=== PATIENT | male | born 1975 | race Caucasian/White ===

== ENCOUNTER → 2019-05-09 19:35 | Outpatient (CLI) | payer OTHER, SELFPAY ==
--- NOTE | 2019-05-09 19:41 | DI.MRI.S_ITS ---
PROCEDURE: MR KNEE RT WO CON INDICATIONS: RIGHT KNEE PAIN TECHNIQUE: Noncontrast sagittal PD fast spin echo and T2 fast spin echo with fat saturation, sagittal 3-D FLASH with fat saturation; coronal T1 spin echo and PD fast spin echo with fat saturation, and axial PD fast spin echo with fat saturation through the knee. COMPARISON: None. FINDINGS: Image quality: Excellent. Menisci: Subtle signal change on image 7 series 7 raise the possibility of undersurface or radial tear involving the junction of the anterior horn and body although technically does not meet strict MR criteria and not seen on orthogonal pulse sequences. Medial meniscal tear involving the undersurface of the body on image 19 series 10. Cruciate ligaments: The anterior and posterior cruciate ligaments appear intact. Medial structures: The medial collateral ligament appears intact. The posterior oblique ligament, semimembranosus tendon insertions, oblique popliteal ligament, and meniscocapsular junction appear intact. Visualized portions of the pes anserinus tendons appear normal. No abnormal bursal fluid. Lateral structures: The lateral collateral ligament demonstrates thickening and intrasubstance signal change in keeping with low grade sprain, statistically chronic, although technically age indeterminate. The biceps femoris tendon appears intact. Popliteus tendon grossly unremarkable. Iliotibial band appears intact. Anterior structures: Quadriceps tendon intact. There is mild patellar tendinopathy. Medial and patellofemoral ligaments intact. Minimal fluid in the deep infrapatellar bursa. Prepatellar and superficial infrapatellar subcutaneous edema/fluid. Bones and cartilage: No focal marrow contusion or discrete low signal fracture line. Within the medial compartment, no articular cartilage defect identified Within the lateral compartment, mild surface fraying and intrasubstance signal change of the central weightbearing femoral and tibial articular cartilage. Within the patellofemoral compartment, surface fraying involving the cartilage overlying the median patellar ridge. Joint space: No pathologic joint effusion. No formed Chan's cyst. No specific evidence of intra-articular loose body. IMPRESSION: Medial meniscal tear involving the undersurface of the body. Possible subtle/radial tear of the junction of the anterior horn and body of the lateral meniscus although does not meet strict MR criteria. Mild degenerative joint disease as above. Mild patellar tendinopathy. Dictated by: Ventura Hillman M.D. on 05/10/2019 at 9:08 Approved by: Ventura Hillman M.D. on 05/10/2019 at 9:20
== END ==
PROVIDERS: Visit Provider Family Medicine
DX: M25.561 Pain in right knee (principal); S83.241A Other tear of medial meniscus, current injury, right knee, initial encounter; M17.11 Unilateral primary osteoarthritis, right knee; M67.961 Unspecified disorder of synovium and tendon, right lower leg
CPT/HCPCS: 73721

== ENCOUNTER 2019-09-08 14:45 | Emergency (ER) | payer OTHER, SELFPAY ==
[2019-09-08 14:51] VITALS: BP 165/93; PULSE 63; RESP 14; TEMP 36.4; O2SAT 96; BMI 32.8
[2019-09-08 15:15] LABS: Bacteria Urine None Seen; WBC Urine None Seen (0-5/HPF)
[2019-09-08 15:29] LABS: Amorphous Sediment Urine 1+; Culture Indicated Urine Cult Not Indicated; Mucus Urine 2+ (Negative); RBC Urine 0-1/HPF (0-5/HPF)
--- NOTE | 2019-09-08 16:02 | DI.CT.S_ITS ---
PROCEDURE: CT KIDNEY URETER BLADDER (KUB) INDICATIONS: L flank pain, severe hematuria TECHNIQUE: Noncontrast 5 mm thick sections acquired from the diaphragms to the symphysis. 5 mm thick coronal and sagittal reformats were then performed. For radiation dose reduction, the following was used: automated exposure control, adjustment of mA and/or kV according to patient size. COMPARISON: None. FINDINGS: Image quality: Excellent. Lung bases: Lung bases are clear. Heart size is normal. There is a small hiatal hernia. Urinary system: There is a 3 mm stone within the bladder lumen, near the left ureterovesical junction, likely a recently passed stone. There is mild left hydronephrosis and left hydroureter with perinephric stranding and perirectal stranding. Both kidneys are normal in size. The right ureter is non-dilated throughout their expected courses. Bladder is semicontracted. Other solid organs: Liver is normal in size. Gallbladder is normal. Pancreas is normal in contours. Spleen is normal in size. No adrenal nodules. Peritoneum and bowel: Unenhanced bowel loops demonstrate normal wall thickness and caliber. There is a moderate amount of stool in colon. No free fluid or air. Nodes and vessels: No retroperitoneal or mesenteric adenopathy by size criteria. Aorta and inferior vena cava are normal in caliber. Abdominal wall: There is a small umbilical hernia. Pelvis: No free pelvic fluid. No inguinal adenopathy. Small fat containing inguinal hernias are noted bilaterally. Bones: No suspicious bony lesions. No vertebral body compression fractures. IMPRESSION: 1. A 3 mm recently passed stone within the bladder lumen. There is mild left hydronephrosis and hydroureter with perinephric stranding and periureteral stranding. The result was discussed with Dr. Mcnair. Dictated by: Chris Gleason M.D. on 09/08/2019 at 16:48 Approved by: Chris Gleason M.D. on 09/08/2019 at 17:03
[2019-09-08 16:05] LABS: Add Manual Diff / Slide Review NO; Basophils Absolute Auto 100 /uL (0-100); Basophils Percent Auto 0.4 % (0-2); Eosinophils Absolute Auto 100 /uL (0-450); Eosinophils Percent Auto 0.5 % (2-4); Hematocrit 45.9 % (41-53); Hemoglobin 15.7 g/dL (13.5-17.5); Lymphocytes Absolute Auto 2100 /uL (1100-4500); Lymphocytes Percent Auto 13.5 % (25-40); Mean Corpuscular HGB Conc 34.3 % (30-36); Mean Corpuscular Hemoglobin 29.7 PG (26-34); Mean Corpuscular Volume 86.7 fL (80-100); Monocytes Absolute Auto 900 /uL (0-900); Neutrophils Absolute Auto 12100 /uL (1500-7000); Neutrophils Percent Auto 79.6 % (50-75); Platelet Count 219 X10^3/uL (150-400); Red Blood Cell Count 5.29 X10^6/uL (4.5-5.9); Red Cell Distribution Width 13.2 % (11.6-14.8); White Blood Cell Count 15.3 X10^3/uL (4.5-11.0)
[2019-09-08] MEDS: SODIUM CHLORIDE 0.9% 1,000 ML 1000 ML IV (16:10)
[2019-09-08] MEDS: KETOROLAC 60 MG/2 ML VIAL 15 MG IV (16:11)
[2019-09-08 16:13] LABS: Prothrombin Time 10.9 SECONDS (10.1-12.7)
[2019-09-08 16:15] LABS: PTT Partial Thromboplastin Tim 41 SECONDS (26.4-36.2)
[2019-09-08 16:17] LABS: Alanine Aminotransferase 62 IU/L (<50); Albumin 4.7 g/dL (3.5-5.0); Albumin Globulin Ratio 1.6 (1.0-2.8); Alkaline Phosphatase 80 U/L (38-126); Aspartate Aminotransferase 167 IU/L (17-59); BUN Creatinine Ratio 14.5 (6-22); Bilirubin Total 0.5 mg/dL (0.2-1.3); Blood Urea Nitrogen 16 mg/dL (9-20); Calcium 9.4 mg/dL (8.4-10.2); Carbon Dioxide 28 mmol/L (22-32); Chloride 102 mmol/L (98-107); Estimated Glomerular Filt Rate > 60.0 mL/min (>60); Globulin 2.9 g/dL (1.7-4.1); Glucose 110 mg/dL (70-100); HEMOLYSIS < 15 (0-50); Lipase 62 U/L (23-300); Potassium 4.3 mmol/L (3.4-5.1); Sodium 140 mmol/L (137-145); Total Protein 7.6 g/dL (6.3-8.2)
[2019-09-08 16:34] VITALS: BP 154/94; PULSE 84; RESP 17; O2SAT 100
--- NOTE | 2019-09-08 16:47 | ED_ITS ---
HPI - Back Pain/Injury General Chief Complaint: Back Pain/Injury Stated Complaint: lower left back pain Time Seen by Provider: 09/08/19 15:01 Source: patient Mode of arrival: Ambulatory Limitations: no limitations History of Present Illness HPI Narrative: 43-year-old male nonsmoker a benign medical history presents with his in the chief complaint of sudden onset left flank pain this morning. There is no provocation or palliation. There episodes of intense pain followed by persistence of an achy pain. He denies any fever but has had some chills. He denies any dysuria, frequency or urgency. He has had no change in bowel habits. He denies any history of the same. MD Complaint: back pain Onset (ago): hour(s) Duration: intermittent Similar Symptoms Previously: No Location: left flank Severity: mild Quality: sharp Radiation: none Relieving factors: none Exacerbating factors: none Associated symptoms: denies other symptoms Related Data Home Medications Medication Instructions Recorded Confirmed pantoprazole 40 mg PO DAILY 09/08/19 09/08/19 phentermine 37.5 mg PO QAM 09/08/19 09/08/19 Previous Rx's Medication Instructions Recorded hydrocodone-acetaminophen 1 tab PO Q4-6H PRN #10 tab 09/08/19 ketorolac 10 mg PO Q6H PRN #14 tab 09/08/19 ondansetron 4 mg PO TID-QID PRN #10 tab 09/08/19 tamsulosin [Flomax] 0.4 mg PO DAILY #10 cap 09/08/19 Allergies Allergy/AdvReac Type Severity Reaction Status Date / Time No Known Drug Allergies Allergy Verified 09/08/19 14:54 Review of Systems Constitutional Constitutional: Denies chills, Denies fatigue, Denies fever(s), Denies frequent falls, Denies lethargy and Denies weakness Eyes Eyes: Denies change in vision, Denies eye discharge, Denies irritation and Denies loss of vision ENT Ears, Nose, Mouth, and Throat: Denies change in voice, Denies dizziness, Denies neck pain, Denies sore throat and Denies throat swelling Cardiovascular Cardiovascular: Denies chest pain, Denies irregular heart rhythm, Denies lightheadedness, Denies palpitations, Denies dyspnea, Denies dyspnea on exertion and Denies orthopnea Respiratory Respiratory: Denies cough, Denies dyspnea, Denies dyspnea on exertion and Denies wheezing Gastrointestinal Gastrointestinal: Denies abdominal pain, Denies change in bowel habits, Denies diarrhea, Denies nausea and Denies vomiting Genitourinary Genitourinary: Denies hematuria, Reports flank pain, Denies urinary incontinence and Denies urinary urgency Musculoskeletal Musculoskeletal: Denies back pain, Denies muscle weakness, Denies neck pain, Denies numbness and Denies tingling Integumentary/Breasts Skin/Breast: Denies pruritus, Denies erythema, Denies rash and Denies wounds Neurologic Neurologic: Denies behavioral changes, Denies confusion, Denies dizziness, Denies frequent falls, Denies loss of vision, Denies numbness, Denies tingling and Denies weakness Psychiatric Psychiatric: Denies anxiety, Denies behavioral changes, Denies confusion, Denies depression, Denies homicidal ideation and Denies suicidal ideation Endocrine Endocrine: Denies fatigue, Denies flushing and Denies palpitations Hematologic/Lymphatic Hematologic/Lymphatic: Denies easy bruising Allergic/Immunologic Allergic/Immunologic: Denies urticaria, Denies throat swelling and Denies wheezing Patient History Social History Smoking Status: Never smoker Smoking Status: Never smoker Substance Use Type: does not use Exam Narrative Exam Narrative: GENERAL: [43] year old patient appears stated age. Well- nourished, well-developed patient, in obvious distress, rocking back and forth, rubbing his left flank HEAD: Atraumatic. Normocephalic. EYES: Pupils equal round and reactive. Extraocular motions intact. No scleral icterus. No injection or drainage. ENT: Nose without bleeding, purulent drainage. Throat without erythema, tonsillar hypertrophy or exudate. Airway patent. NECK: Trachea midline. Non tender CARDIOVASCULAR: Regular rate and rhythm without murmurs, gallops, or rubs. RESPIRATORY: Clear to auscultation. Breath sounds equal bilaterally. No wheezes, rales, or rhonchi. GASTROINTESTINAL: Abdomen soft, non-tender, nondistended. EXTREMITIES: No edema or joint tenderness. BACK: Nontender without deformity or crepitance. No flank tenderness. NEURO: AOx3. SKIN: No rash or erythema of visible areas Initial Vital Signs Initial Vital Signs: Vital Signs Temperature 97.6 F 09/08/19 14:51 Pulse Rate 63 09/08/19 14:51 Respiratory Rate 14 09/08/19 14:51 Blood Pressure 165/93 H 09/08/19 14:51 Pulse Oximetry 96 09/08/19 14:51 Course Orders Ordered: ED Orders 09/08/19 15:14 Urine Microscopic Stat 09/08/19 15:59 Complete Blood Count AUTO DIFF Stat Comprehensive Metabolic Panel Stat Lipase Stat Partial Thromboplastin Time Stat Prothrombin Time INR Stat 09/08/19 16:02 CT kidney ureter bladder (KUB) Stat Discontinued Medications Sodium Chloride (Normal Saline 0.9%) 1,000 mls @ 1,000 mls/hr IV BOLUS ONE Stop: 09/08/19 17:01 Last Infusion: 09/08/19 17:36 Dose: 0 mls/hr Documented by: Admin: 09/08/19 16:10 Dose: 1,000 mls/hr Documented by: KIRSTEN Lidocaine HCl 7.1 ml/ Sodium (Chloride) 57.1 mls @ 342.6 mls/hr IV NOW ONE Stop: 09/08/19 17:02 Last Admin: 09/08/19 17:36 Dose: Not Given Documented by: KIRSTEN Ketorolac Tromethamine (Toradol) 15 mg IV NOW ONE Stop: 09/08/19 16:03 Last Admin: 09/08/19 16:11 Dose: 15 mg Documented by: KIRSTEN Vital Signs Vital signs: Vital Signs - 8 hr 09/08/19 14:51 09/08/19 16:34 09/08/19 18:04 Temperature 97.6 F Pulse Rate 63 84 65 Respiratory Rate 14 17 16 Blood Pressure 165/93 H Blood Pressure [Right Arm] 154/94 H 149/96 H Pulse Oximetry 96 100 99 MDM - Back Pain/Injury Lab Data Result diagrams: 09/08/19 15:59 09/08/19 15:59 Labs: Lab Results 09/08/19 09/08/19 09/08/19 Range/Units 15:14 15:59 15:59 WBC 15.3 H (4.5-11.0) X10^3/uL RBC 5.29 (4.5-5.9) X10^6/uL Hgb 15.7 (13.5-17.5) g/dL Hct 45.9 (41-53) % MCV 86.7 (80-100) fL MCH 29.7 (26-34) PG MCHC 34.3 (30-36) % RDW 13.2 (11.6-14.8) % Plt Count 219 (150-400) X10^3/uL Neut % (Auto) 79.6 H (50-75) % Lymph % (Auto) 13.5 L (25-40) % Platte % (Auto) 6.0 (3-14) % Eos % (Auto) 0.5 L (2-4) % Baso % (Auto) 0.4 (0-2) % Neut # (Auto) 76423 H (1472-0909) /uL Lymph # (Auto) 2100 (1819-9264) /uL Platte # (Auto) 900 (0-900) /uL Eos # (Auto) 100 (0-450) /uL Baso # (Auto) 100 (0-100) /uL PT 10.9 (10.1-12.7) SECONDS INR 1.0 (0.9-1.3) APTT 41 H (26.4-36.2) SECONDS Sodium (137-145) mmol/L Potassium (3.4-5.1) mmol/L Chloride (98-107) mmol/L Carbon Dioxide (22-32) mmol/L BUN (9-20) mg/dL Creatinine (0.66-1.25) mg/dL Estimated GFR (>60) mL/min BUN/Creatinine Ratio (6-22) Glucose (70-100) mg/dL Calcium (8.4-10.2) mg/dL Total Bilirubin (0.2-1.3) mg/dL AST (17-59) IU/L ALT (<50) IU/L Alkaline Phosphatase (38-126) U/L Total Protein (6.3-8.2) g/dL Albumin (3.5-5.0) g/dL Globulin (1.7-4.1) g/dL Albumin/Globulin Ratio (1.0-2.8) Lipase (23-300) U/L Urine RBC 0-1/hpf (0-5/HPF) Urine WBC None seen (0-5/HPF) Amorphous Sediment 1+ Urine Bacteria None seen (None) Urine Mucus 2+ H (Negative) Ur Culture Indicated? Cult not indicated 09/08/19 Range/Units 15:59 WBC (4.5-11.0) X10^3/uL RBC (4.5-5.9) X10^6/uL Hgb (13.5-17.5) g/dL Hct (41-53) % MCV (80-100) fL MCH (26-34) PG MCHC (30-36) % RDW (11.6-14.8) % Plt Count (150-400) X10^3/uL Neut % (Auto) (50-75) % Lymph % (Auto) (25-40) % Platte % (Auto) (3-14) % Eos % (Auto) (2-4) % Baso % (Auto) (0-2) % Neut # (Auto) (5542-1399) /uL Lymph # (Auto) (7349-1223) /uL Platte # (Auto) (0-900) /uL Eos # (Auto) (0-450) /uL Baso # (Auto) (0-100) /uL PT (10.1-12.7) SECONDS INR (0.9-1.3) APTT (26.4-36.2) SECONDS Sodium 140 (137-145) mmol/L Potassium 4.3 (3.4-5.1) mmol/L Chloride 102 (98-107) mmol/L Carbon Dioxide 28 (22-32) mmol/L BUN 16 (9-20) mg/dL Creatinine 1.10 (0.66-1.25) mg/dL Estimated GFR > 60.0 (>60) mL/min BUN/Creatinine Ratio 14.5 (6-22) Glucose 110 H (70-100) mg/dL Calcium 9.4 (8.4-10.2) mg/dL Total Bilirubin 0.5 (0.2-1.3) mg/dL AST 167 H (17-59) IU/L ALT 62 H (<50) IU/L Alkaline Phosphatase 80 (38-126) U/L Total Protein 7.6 (6.3-8.2) g/dL Albumin 4.7 (3.5-5.0) g/dL Globulin 2.9 (1.7-4.1) g/dL Albumin/Globulin Ratio 1.6 (1.0-2.8) Lipase 62 (23-300) U/L Urine RBC (0-5/HPF) Urine WBC (0-5/HPF) Amorphous Sediment Urine Bacteria (None) Urine Mucus (Negative) Ur Culture Indicated? Urine Dip Bedside Urine Glucose Negative Bedside Urine Bilirubin + 1 Bedside Urine Ketone +/- 5 Urine Specific Dandridge 1.030 Bedside Urine Occult Blood +/- Bedside Urine pH 6.0 Bedside Urine Protein +/- 15 Bedside Urine Urobilinogen +/- 1mg Bedside Urine Nitrite - Negative Bedside Urine Leukocytes - Negative Esterase Imaging Data CT scan - abdomen/pelvis: Radiologist's Impression: [address] [address] [address] Scan Report Signed Patient: Grayson Barrow GMR#: [id number] : 1975Acct:[id number] Age/Sex: 43 / MDate of Service: 09/08/19 Loc: ED Accession Number: [id number] Procedure: CT kidney ureter bladder (KUB) Ordering Provider: Mario Mcnair D.O. PROCEDURE: CT KIDNEY URETER BLADDER (KUB) INDICATIONS: L flank pain, severe hematuria TECHNIQUE: Noncontrast 5 mm thick sections acquired from the diaphragms to the symphysis. 5 mm thick coronal and sagittal reformats were then performed. For radiation dose reduction, the following was used: automated exposure control, adjustment of mA and/or kV according to patient size. COMPARISON: None. FINDINGS: Image quality: Excellent. Lung bases: Lung bases are clear. Heart size is normal. There is a small hiatal hernia. Urinary system: There is a 3 mm stone within the bladder lumen, near the left ureterovesical junction, likely a recently passed stone. There is mild left hydronephrosis and left hydroureter with perinephric stranding and perirectal stranding. Both kidneys are normal in size. The right ureter is non-dilated throughout their expected courses. Bladder is semicontracted. Other solid organs: Liver is normal in size. Gallbladder is normal. Pancreas is normal in contours. Spleen is normal in size. No adrenal nodules. Peritoneum and bowel: Unenhanced bowel loops demonstrate normal wall thickness and caliber. There is a moderate amount of stool in colon. No free fluid or air. Nodes and vessels: No retroperitoneal or mesenteric adenopathy by size criteria. Aorta and inferior vena cava are normal in caliber. Abdominal wall: There is a small umbilical hernia. Pelvis: No free pelvic fluid. No inguinal adenopathy. Small fat containing inguinal hernias are noted bilaterally. Bones: No suspicious bony lesions. No vertebral body compression fractures. IMPRESSION: 1. A 3 mm recently passed stone within the bladder lumen. There is mild left hydronephrosis and hydroureter with perinephric stranding and periureteral stranding. The result was discussed with Dr. Mcnair. Dictated by: Chris Gleason M.D. on 09/08/2019 at 16:48 Approved by: Chris Gleason M.D. on 09/08/2019 at 17:03 Discharge Plan Departure Patient Disposition: Home Clinical Impression: Kidney stone Discharge Date/Time: 09/08/19 18:06 Activity Restrictions/Additional Instructions: *You have been diagnosed with [left-sided kidney stone, likely already passed, in your bladder] *What to do: *Take medications as directed *Follow up with your primary care provider in 2-3 days, call for an appointment. Let them know you were seen in the Emergency Department and that we ask that you be seen in follow up *Return to ER if you should have any new, worsening or concerning symptoms Prescriptions: New hydrocodone-acetaminophen 5-325 mg tablet 1 tab PO Q4-6H PRN (Reason: pain) Qty: 10 RF: 0 ketorolac 10 mg tablet 10 mg PO Q6H PRN (Reason: pain) Qty: 14 RF: 0 ondansetron 4 mg tablet,disintegrating 4 mg PO TID-QID PRN (Reason: nausea and vomiting) Qty: 10 RF: 0 tamsulosin [Flomax] 0.4 mg capsule 0.4 mg PO DAILY Qty: 10 RF: 0 No Action phentermine 37.5 mg tablet 37.5 mg PO QAM RF: 0 pantoprazole 40 mg tablet,delayed release (DR/EC) 40 mg PO DAILY RF: 0
[2019-09-08 18:04] VITALS: BP 149/96; PULSE 65; RESP 16; O2SAT 99
== END 2019-09-08 18:06 | disposition home or self-care (01) ==
PROVIDERS: Emergency Provider Emergency Medicine
DX: N20.0 Calculus of kidney (principal); R31.9 Hematuria, unspecified
CPT/HCPCS: 36415; 74176; 80053; 81003; 81015; 83690; 85025; 85610; 85730; 96361; 96374; 99284; J1885

== ENCOUNTER → 2019-09-16 17:40 | Outpatient (CLI) | payer OTHER, SELFPAY ==
--- NOTE | 2019-09-16 17:41 | DI.MRI.S_ITS ---
PROCEDURE: MR KNEE LT WO CON INDICATIONS: PAIN IN LEFT KNEE TECHNIQUE: Noncontrast sagittal PD fast spin echo and T2 fast spin echo with fat saturation, sagittal 3-D FLASH with fat saturation; coronal T1 spin echo and PD fast spin echo with fat saturation, and axial PD fast spin echo with fat saturation through the knee. COMPARISON: Located Within [facility], MR, MR KNEE RT WO CON, 05/09/2019, 19:48. FINDINGS: Image quality: Excellent. Menisci: The medial and lateral menisci demonstrate normal morphology and internal signal. The meniscal root ligaments appear intact. Cruciate ligaments: The anterior and posterior cruciate ligaments appear intact. Medial structures: The medial collateral ligament appears intact. The posterior oblique ligament, semimembranosus tendon insertions, oblique popliteal ligament, and meniscocapsular junction appear intact. Visualized portions of the pes anserinus tendons appear normal. No abnormal bursal fluid. Lateral structures: The lateral collateral ligament, long and short heads of the biceps femoris tendon appear intact. The popliteus tendon appears normal; the popliteofibular ligament appears intact. The posterosuperior and anteroinferior popliteomeniscal fascicles appear intact. The arcuate and fabellofibular ligaments appear intact, on either side of the lateral inferior geniculate artery. Iliotibial band appears normal. Anterior structures: The quadriceps is intact. Mildly thick in the proximal patella tendon with surrounding soft tissue edema is seen suggestive of low-grade patella tendinitis. Patellar alignment is normal. No femoral trochlear dysplasia or ventral trochlear prominence. No edema in the infrapatellar fat pad. Bones and cartilage: No bone marrow contusions or fractures. The cartilage of the medial and lateral femorotibial compartments, as well as the patellofemoral compartment, appears normal in thickness. Joint space: There is physiologic knee joint fluid. No Chan's cyst. Normal appearing synovial plicae are incidentally noted. IMPRESSION: 1. No evidence of focal meniscal tear. Cruciate ligaments are intact. 2. No marrow signal abnormality. No fracture or dislocation. 3. Mildly thickened proximal to mid patella tendon, suggestive of low-grade patellofemoral this. Dictated by: Tyler Agudelo M.D. on 09/19/2019 at 10:13 Approved by: Tyler Agudelo M.D. on 09/19/2019 at 10:17
== END ==
PROVIDERS: Visit Provider Family Medicine
DX: M25.562 Pain in left knee (principal)
CPT/HCPCS: 73721

== ENCOUNTER → 2020-10-08 15:35 | Outpatient (CLI) | payer OTHER, SELFPAY ==
--- NOTE | 2020-10-08 15:36 | DI.MRI.S_ITS ---
PROCEDURE: MR HEAD/BRAIN WO CON INDICATIONS: Other migraine, not intractable, TECHNIQUE: Noncontrast axial T1 spin echo, axial T2 fast spin echo, sagittal and axial FLAIR, coronal T2 fast spin echo, axial gradient echo, axial diffusion and ADC through the brain. COMPARISON: None. FINDINGS: Image quality: Excellent. CSF Spaces: Basal cisterns are patent. No extra-axial fluid collections. Ventricles are normal in size and shape. Brain: No intracranial masses or hemorrhage. Theodore/white matter interface is normal. Brainstem appears normal. Diffusion-weighted images demonstrate no acute ischemic insult. No chronic ischemic insults. Normal intravascular flow voids are present. Skull and face: Calvarium has normal marrow signal. Orbits appear normal. Sinuses: Sinuses and mastoids are clear. IMPRESSION: Negative brain MRI. No explanation for migraine. No recent infarct. Dictated by: Shakir Salazar M.D. on 10/08/2020 at 16:23 Approved by: Shakir Salazar M.D. on 10/08/2020 at 16:24
== END ==
PROVIDERS: PCP Family Medicine; Referring Provider Family Medicine; Visit Provider Family Medicine
DX: G43.809 Other migraine, not intractable, without status migrainosus (principal)
CPT/HCPCS: 70551

== ENCOUNTER → 2021-09-30 13:28 | Outpatient (CLI) | payer OTHER, SELFPAY ==
--- NOTE | 2021-09-30 | DI.MRI.S_ITS ---
PROCEDURE: MR SHOULDER LT WO CON INDICATIONS: Pain in left shoulder TECHNIQUE: Noncontrast oblique coronal T2 fast spin echo with fat saturation, oblique sagittal T1 spin echo and T2 fast spin echo with fat saturation, axial T1 spin echo and T2 fast spin echo with fat saturation through the shoulder. COMPARISON: None. FINDINGS: Image quality: Excellent. Rotator cuff: T2 hyperintense signal at the musculotendinous junction of the supraspinatus, compatible with interstitial tear. Mild supraspinatus tendinopathy with interstitial tear at the humeral attachment. Mild infraspinatus tendinopathy with interstitial tear. Mild subscapularis tendinopathy without evidence of tear. Sagittal images demonstrate no significant muscle atrophy. Bones and bursae: No bone marrow contusions or fractures. Minimal acromioclavicular joint degeneration. No os acromiale. Trace pathologic subacromial-subdeltoid bursal fluid is present. Capsule and soft tissues: The labrum appears intact. The long head of the biceps tendon demonstrates normal location and morphology. The rotator interval appears normal, without fibrosis. The coracohumeral ligament is normal in thickness. IMPRESSION: 1. Mild supraspinatus tendinopathy with interstitial tears as detailed above. 2. Mild infraspinatus tendinopathy with interstitial tear. 3. Mild subscapularis tendinopathy. 4. Minimal subacromial/subdeltoid bursitis. Dictated by: Santy Nayak M.D. on 09/30/2021 at 14:10 Approved by: Santy Nayak M.D. on 09/30/2021 at 14:14
== END ==
PROVIDERS: PCP Family Medicine; Referring Provider Family Medicine; Visit Provider Family Medicine
DX: M25.512 Pain in left shoulder (principal); M75.112 Incomplete rotator cuff tear or rupture of left shoulder, not specified as traumatic; M75.42 Impingement syndrome of left shoulder
CPT/HCPCS: 73221

== ENCOUNTER → 2022-01-31 13:57 | Outpatient (CLI) | payer OTHER, SELFPAY ==
[2022-01-31 15:58] LABS: COVID19 -Nasal RAPID Negative (Negative)
--- NOTE | 2022-01-31 17:38 | DI.NM.S_ITS ---
DATE OF SERVICE: 01/31/2022 PROCEDURE: Exercise stress test. INDICATION: Chest pain. CARDIAC STRESS: Patient underwent exercise stress test under the supervision of an attending staff. He walked on Claudio protocol for 8 minutes and 43 seconds, achieved 90 percent of target heart rate. Baseline blood pressure 110/74. Peak blood pressure 180/90 mmHg. Baseline rhythm was sinus with sinus bradycardia with heart rate up to 49 beats per minute. During stress, there were no convincing ischemic changes seen. In recovery, the patient has some PACs. No obvious atrial fibrillation or ventricular tachycardia. During exercise, at about 7 minutes and 30 seconds, the patient developed chest tightness, which was on a scale of 1 to 10, 3 in intensity, which got immediately resolved in recovery. It was not associated with any ischemic EKG changes or arrhythmias. The patient achieved 10.1 METs of workload. Functional aerobic impairment positive 23 percent. CONCLUSION: 1. Exercise stress test is negative for inducible ischemia. 2. Normal hemodynamic response. 3. Diminished exercise tolerance. MARGARET positive 23 percent. The patient had mild chest discomfort at about 7 minutes and 30 seconds during exercise, which got resolved immediately, without any associated ischemic electrocardiographic changes or arrhythmias. Correlate clinically. Grayson Barrow - YISEL/marshall/vickie doc#: [id number]/job#: [id number] dd: 01/31/2022 16:57:00 dt: 01/31/2022 17:25:00 DICTATING /COPIES TO: Dolly Verma MD COPIES MNE: LIZA;
== END ==
PROVIDERS: PCP Family Medicine; Referring Provider Internal Medicine Cardiovascular Disease; Visit Provider Internal Medicine Cardiovascular Disease
DX: R07.9 Chest pain, unspecified (principal); Z20.822 Contact with and (suspected) exposure to COVID-19
CPT/HCPCS: 87635; 93017

== ENCOUNTER → 2022-02-04 15:45 | Outpatient (CLI) | payer OTHER, SELFPAY ==
--- NOTE | 2022-02-04 15:47 | DI.ECHO.S_ITS ---
[facility]---------+ [facility] +---------+ : : [address] : [address] : : : : [id number] : : : : Phone: [phone]+ Echocardiogram Report + + :Name: MIREYA REYES Study Date: 02/04/2022 Height: 67 in : :[facility] ReadingLocation: Weight: 235 lb : : Gender: Male BSA: 2.2 m2 : :: 1975 Age: 46 yrs BP: 132/91 mmHg: :Reason For Study: DYSPNEA : :Ordering Physician: PAWAN, : :MINOO Performed By: Danyelle Lubni : :Referring: MINOO ANGULO : + + Interpretation Summary 1) Normal left ventricular thickness, size, wall motion, and systolic function (EF 60-65%). 2) Normal right ventricular size and function. 3) No significant valvular abnormalities. 4) Pulmonary artery pressures cannot be estimated because of the lack of a measurable TR jet velocity. 5) No prior Echo available for comparison. Procedure: A two-dimensional transthoracic echocardiogram with color flow and Doppler was performed. The study quality was technically adequate. There is no prior echocardiogram noted for this patient. The patient was in sinus rhythm with heart rates between 62-75 bpm during the exam. Left Ventricle: The left ventricle is normal in size and wall thickness. The ejection fraction is estimated to be 60-65%. Left ventricular systolic function appears normal without focal wall motion abnormalities. Diastolic parameters suggest probable normal left ventricular diastolic function and normal filling pressures. Right Ventricle: The right ventricle is normal in size and function. Atria: The left atrial size is normal. Right atrial size is normal. There is no Doppler evidence for an interatrial shunt. Mitral Valve: The mitral valve is normal in structure and function. There is trace mitral regurgitation. Aortic Valve: The aortic valve is trileaflet. The aortic valve opens well. There is no aortic valve stenosis. No aortic regurgitation is present. Tricuspid Valve: The tricuspid valve is normal in structure and function. There is trace tricuspid regurgitation. Pulmonary artery pressures cannot be estimated because of the lack of a measurable TR jet velocity. Pulmonic Valve: The pulmonic valve leaflets are thin and pliable; valve motion is normal. There is no pulmonic valvular regurgitation. Great Vessels: The aortic root is normal size. The dimensions of the ascending aorta are normal. The IVC is of normal diameter and collapses greater than 50% with a sniff. This suggests a low right atrial pressure of 3 mm Hg. Pericardium/ Pleura There is no pericardial effusion. There is no pleural effusion. MMode/2D Measurements & Calculations LVIDd: 4.7 cm LVOT diam: 2.5 cm LVIDs: 3.0 cm Ao root diam: 3.4 cm FS: 35.2 % asc Aorta Diam: 3.8 cm IVSd: 1.3 cm Ao Arch Diam (Prox Trans): 3.0 cm LVPWd: 0.99 cm LV ennis. diameter/BSA (cm/m^2): 2.2 LV sys. diameter/BSA (cm/m^2): 1.4 LA A2 area: 16.3 cm2 RA long axis: 4.9 cm LA A4 area: 16.6 cm2 RA area: 15.8 cm2 LA length (vol): 5.1 cm RA vol: 43.3 ml LA vol: 45.5 ml RA : 20.0 ml/m2 LA vol index: 21.0 ml/m2 IVC diam: 1.3 cm RVD1 (basal): 3.8 cm RVD2 (mid): 3.4 cm TAPSE: 2.3 cm Doppler Measurements & Calculations Ao V2 max: 137.7 cm/sec LVOT Max Abdi: 104.5 cm/sec Ao V2 mean: 86.2 cm/sec LV V1 max P.4 mmHg Ao max P.6 mmHg LV V1 VTI: 18.9 cm Ao mean P.5 mmHg LUPE(I,D): 3.9 cm2 Ao V2 VTI: 23.9 cm LUPE(V,D): 3.8 cm2 sev ratio: 0.79 LUPE indexed to BSA (cm^2/m^2): 1.8 MV E max abdi: 67.3 cm/sec PA V2 max: 108.7 cm/sec MV A max abdi: 64.4 cm/sec PA V2 mean: 76.9 cm/sec MV E/A: 1.0 PA mean P.6 mmHg Med Peak E' Abdi: 11.0 cm/sec PA pr(Accel): 27.6 mmHg E/E' med: 6.1 Lat Peak E' Abdi: 9.5 cm/sec E/E' lat: 7.1 E/e' average: 6.6 MV dec time: 0.18 sec SV(LVOT): 94.2 ml Reading Physician:05:37 PM
== END ==
PROVIDERS: PCP Family Medicine; Referring Provider Internal Medicine Cardiovascular Disease; Visit Provider Internal Medicine Cardiovascular Disease
DX: R07.9 Chest pain, unspecified (principal); R06.00 Dyspnea, unspecified
CPT/HCPCS: 93306